=== PATIENT | male | born 1990 | race Caucasian/White ===

== ENCOUNTER 2018-02-03 22:12 | Emergency (ER) | payer BC ==
[2018-02-03] MEDS ORDERED: Lidocaine 2% 20 ML MDV INFILT ONE (22:13)
[2018-02-03] MEDS ORDERED: Diphtheria,Pertussis(Acell),Tetanus Vaccine 0.5 ML SDV IM ONE (22:28)
--- NOTE | 2018-02-03 22:53 | EDM.PDOC ---
ED HPI GENERAL MEDICAL PROBLEM - General Chief Complaint: General Stated Complaint: LIP LAC Time Seen by Provider: 02/03/18 22:45 Source of Information: Reports: Patient History Limitations: Reports: No Limitations - History of Present Illness INITIAL COMMENTS - FREE TEXT/NARRATIVE: Bit his dangelo pl;kailynyvonne BB.Bled for a few minutes.Not sure of his last Tetanus - Related Data Allergies Allergy/AdvReac Type Severity Reaction Status Date / Time No Known Allergies Allergy Verified 02/03/18 22:20 Home Meds: Home Meds NK [No Known Home Meds] 02/03/18 [History] Past Medical History - Past Health History Medical/Surgical History: Denies Medical/Surgical History Social & Family History - Family History Family Medical History: Noncontributory - Tobacco Use Smoking Status *Q: Never Smoker - Caffeine Use Caffeine Use: Reports: Coffee - Recreational Drug Use Recreational Drug Use: No ED ROS GENERAL - Review of Systems Review Of Systems: ROS reveals no pertinent complaints other than HPI. ED EXAM, GENERAL - Physical Exam Exam: See Below Free Text/Narrative:: 3 cm laceration on dorsal tongue Exam Limited By: No Limitations General Appearance: Alert, WD/WN ED GENERAL MEDICAL PROCEDURES - Laceration/Wound Repair Dorsal Other Lac/wound length in cm: 3 Appearance: Subcutaneous Distal NVT: Neuro & Vascular Intact, No Tendon Injury Anesthetic Type: Local Local Anesthesia - Lidocaine (Xylocaine): 2% Plain Local Anesthetic Volume: 3cc Exploration/Debridement/Repair: In a Bloodless Field Closed with: Sutures Suture Size: other (5-0) Suture Type: Interrupted Course - Vital Signs Last Recorded V/S: Last Vital Signs Temp 98.2 F 02/03/18 22:12 Pulse 85 02/03/18 22:12 Resp 17 02/03/18 22:12 BP 139/85 02/03/18 22:12 Pulse Ox 99 02/03/18 22:12 - Orders/Labs/Meds Orders: Active Orders 24 hr Category Date Time Status Vaccines to be Administered [RC] PER UNIT ROUTINE Care 02/03/18 22:28 Ordered Meds: Medications Discontinued Medications Generic Name Dose Route Start Last Admin Trade Name Freq PRN Reason Stop Dose Admin Diphtheria/Tetanus/Acell Pertussis 0.5 ml 02/03/18 22:28 02/03/18 22:32 Adacel IM 02/03/18 22:29 0.5 ml .ONCE ONE Administration Departure - Departure Time of Disposition: 22:52 Disposition: Home, Self-Care 01 Condition: Good Clinical Impression: Laceration of tongue - Discharge Information Referrals: PCP,None [Primary Care Provider] - - Problem List & Annotations (1) Laceration of tongue SNOMED Code(s): 612434277 Code(s): S01.512A - LACERATION WITHOUT FOREIGN BODY OF ORAL CAVITY, INIT ENCNTR Status: Acute Current Visit: Yes Qualifiers: Encounter type: initial encounter Qualified Code(s): S01.512A - Laceration without foreign body of oral cavity, initial encounter - Problem List Review Problem List Initiated/Reviewed/Updated: Yes - My Orders Last 24 Hours: My Active Orders 02/03/18 22:28 Vaccines to be Administered [RC] PER UNIT ROUTINE - Assessment/Plan Last 24 Hours: My Active Orders 02/03/18 22:28 Vaccines to be Administered [RC] PER UNIT ROUTINE Plan: Sutured with 5-0 Vicryl. Tolerated procedure well
== END 2018-02-03 23:00 | disposition home or self-care (01) ==
LOC: FB.ED 22:12
DX: S01.512A Laceration without foreign body of oral cavity, initial encounter (principal); Z23 Encounter for immunization; W50.3XXA Accidental bite by another person, initial encounter
CPT/HCPCS: 12002; 41252; 90471; 90715; 99282